=== PATIENT | male | born 1985 | race Caucasian/White ===

== ENCOUNTER 2019-09-27 22:50 | Emergency (ER) | payer OTHER ==
[~2019-09-27] VITALS: Ht 172.7 cm; Wt 88.6 kg
[2019-09-27 23:50] VITALS: BP 129/87
== END 2019-09-28 01:17 ==
LOC: ER 22:52
DX: S20.112A Abrasion of breast, left breast, initial encounter (principal); R04.0 Epistaxis; V87.7XXA Person injured in collision between other specified motor vehicles (traffic), initial encounter; Y93.89 Activity, other specified; Y92.89 Other specified places as the place of occurrence of the external cause; Y99.8 Other external cause status
CPT/HCPCS: 71046; 99283